=== PATIENT | male | born 1935 | race Caucasian/White ===

== ENCOUNTER → 2016-07-10 | Outpatient (CLI) | payer MEDICARE, BC ==
[~2016-07-10] MED LIST: ALEVE 220MG220 MG PO; ALEVE220 MG PO; ASPIRIN 81M81 MG/TA2 PO; ASPIRIN E.C. 8181 MG PO; ATORVASTATIN PO; AZULFIDINE500 MG/TAB PO; COLACE 100100 MG/CAP PO; CORDARONE200 MG/TAB PO; D-31000 IU PO; ELIQUIS 5MG PO; FAT ABSORB1 CAP PO; FIBER TABLETS625 MG PO; FLONASE NASAL S16 GM NS; HCTZ; HYOMAX-FT0.125 MG PO; IRON TABLETS325 MG PO; LEVOTHYROXINE0.1 MG PO; LIPITOR 10MG10 MG PO; LOMOTIL 0.025 M1 TAB PO; LOPRESSOR 550 MG/TAB PO; LOW DOSE ASPIRI81 MG PO; MAREPA1200 MG PO; MELATONIN3 M1 PO; MULTAQ400 MG PO; MULTI VITAMINS1 TAB PO; MULTIPLE VITAMI1 CAP PO; NEXIUM PO; PERCOCET 5/321 UDTAB PO; PHENERGAN W/CO120 M1 PO; POTASSIUM GLUC550 MG PO; PRIL40 PO; PRILOSEC 20MG20 MG PO; PROFERRIN ES12 MG PO; SINGULAIR; SINGULAIR 110 MG/TAB PO; SINGULAIR10 MG PO; TESSALON PERLE200 MG PO; TIROSINT100 MCG PO; TOPROL PO; TOPROL XL 50MG50 MG PO; VERAPAMIL; VITAMIN C500 MG PO; XARELTO20 MG PO; ZYLOPRIM 300MG300 MG PO; [UNRECOGNIZED DRUG - CODE] PO; [UNRECOGNIZED DRUG - OTHER] IH
== END ==
LOC: COL.PUL 11:36
DX: I48.0 Paroxysmal atrial fibrillation (principal); Z79.899 Other long term (current) drug therapy

== ENCOUNTER 2016-12-26 08:17 | Outpatient (CLI) | payer MEDICARE, BC ==
[~2016-12-26 08:17] MED LIST changes: -[UNRECOGNIZED DRUG - OTHER] IH
[2016-12-26 08:29] VITALS: BP 133/83; PULSE 62; TEMP 97
[2016-12-26] MEDS ORDERED: [UNRECOGNIZED DRUG - OTHER] IH (08:45)
[2016-12-26 10:01] VITALS: BP 131/66; PULSE 73; TEMP 97.2
== END 2016-12-26 19:29 | disposition home or self-care (01) ==
LOC: COL.CAR 08:17
DX: I48.0 Paroxysmal atrial fibrillation (principal); I10 Essential (primary) hypertension; E78.5 Hyperlipidemia, unspecified; K21.9 Gastro-esophageal reflux disease without esophagitis; G47.33 Obstructive sleep apnea (adult) (pediatric); E03.9 Hypothyroidism, unspecified; Z96.653 Presence of artificial knee joint, bilateral; Z90.79 Acquired absence of other genital organ(s); Z79.01 Long term (current) use of anticoagulants; Z85.46 Personal history of malignant neoplasm of prostate; Z87.891 Personal history of nicotine dependence; Z85.828 Personal history of other malignant neoplasm of skin
CPT/HCPCS: 27124; C1764

== ENCOUNTER 2017-05-10 13:18 | Day surgery (SDC) | payer MEDICARE, BC ==
[2017-05-10] VITALS (8 sets, daily range): BP systolic 110–146; BP diastolic 72–103; PULSE 61–101
[~2017-05-10] VITALS: Ht 175.3 cm; Wt 77.0 kg
[~2017-05-10 13:18] MED LIST changes: +[UNRECOGNIZED DRUG - OTHER] IH
[2017-05-10] MEDS ORDERED: SINEMET 25/101 UDTAB PO (14:54)
[2017-05-10 14:56] LABS: POTASSIUM 4.1 mmol/L (3.4-5.0)
[2017-05-10 15:00] LABS: INR 1.2 (0.8-3.0); PROTHROMBIN TIME 13.9 SECONDS (9.7-12.8)
[2017-05-10 15:31] LABS: THYROID STIMULATING HORMONE 0.358 uIU/mL (0.465-4.680)
[2017-05-10] MEDS ORDERED: PACERONE200 MG PO (16:20)
== END 2017-05-10 17:00 | disposition home or self-care (01) ==
LOC: COL.CAR 13:18
PROVIDERS: Internal Medicine Cardiovascular Disease
DX: I48.0 Paroxysmal atrial fibrillation (principal); Z79.01 Long term (current) use of anticoagulants
CPT/HCPCS: J2250; J3010; J7030

== ENCOUNTER 2017-05-22 13:03 | Day surgery (SDC) | payer MEDICARE, BC ==
[~2017-05-22] VITALS: Ht 175.4 cm; Wt 77.0 kg
[~2017-05-22 13:03] MED LIST changes: +PACERONE200 MG PO; +SINEMET 25/101 UDTAB PO
[2017-05-22 13:50] VITALS: BP 125/81; PULSE 96; TEMP 97.6
[2017-05-22 13:52] LABS: INR 1.3 (0.8-3.0); PROTHROMBIN TIME 15.1 SECONDS (9.7-12.8)
[2017-05-22 13:53] LABS: POTASSIUM 4.3 mmol/L (3.4-5.0)
[2017-05-22 14:14] VITALS: BP 126/84; PULSE 94
[2017-05-22 14:28] LABS: THYROID STIMULATING HORMONE 0.849 uIU/mL (0.465-4.680)
[2017-05-22 15:00] VITALS: BP 112/68; PULSE 61
[2017-05-22 15:15] VITALS: BP 121/62; PULSE 62
[2017-05-22 15:30] VITALS: BP 100/60; PULSE 67
[2017-05-22 16:00] VITALS: BP 110/60; PULSE 58
== END 2017-05-22 16:14 | disposition home or self-care (01) ==
LOC: COL.CAR 13:03
PROVIDERS: Internal Medicine Cardiovascular Disease
DX: I48.91 Unspecified atrial fibrillation (principal); Z79.899 Other long term (current) drug therapy
CPT/HCPCS: J0153; J2250; J3010

== ENCOUNTER 2017-08-09 07:12 | Day surgery (SDC) | payer MEDICARE, BC ==
[~2017-08-09] VITALS: Ht 175.3 cm; Wt 79.9 kg
[~2017-08-09 07:12] MED LIST changes: +SYNTHROID0.1 MG/TAB PO; -TIROSINT100 MCG PO
[2017-08-09] MEDS ORDERED: MELAT3MGTAB PO (07:49)
[2017-08-09 07:58] LABS: INR 1.3 (0.8-3.0); PROTHROMBIN TIME 15.5 SECONDS (9.7-12.8)
[2017-08-09 08:01] LABS: POTASSIUM 4.4 mmol/L (3.4-5.0)
[2017-08-09 08:08] VITALS: BP 111/66; PULSE 62; TEMP 97.4
[2017-08-09 08:34] LABS: THYROID STIMULATING HORMONE 0.932 uIU/mL (0.465-4.680)
[2017-08-09 08:51] VITALS: BP 117/71; PULSE 51; TEMP 98.1
[2017-08-09] MEDS ORDERED: CORDARONE200 MG/TAB PO (09:01)
== END 2017-08-09 10:36 | disposition home or self-care (01) ==
LOC: COL.CAR 07:12
PROVIDERS: Internal Medicine Cardiovascular Disease
DX: I48.0 Paroxysmal atrial fibrillation (principal); I48.91 Unspecified atrial fibrillation; I10 Essential (primary) hypertension; E78.5 Hyperlipidemia, unspecified; E03.9 Hypothyroidism, unspecified; G47.30 Sleep apnea, unspecified
CPT/HCPCS: J7030

== ENCOUNTER 2018-01-23 14:00 | Emergency (ER) | payer MEDICARE, BC ==
[~2018-01-23] VITALS: Ht 177.8 cm; Wt 77.3 kg
[~2018-01-23 14:00] MED LIST changes: +MELAT3MGTAB PO
[2018-01-23 14:12] VITALS: TEMP 98
[2018-01-23 15:41] LABS: BASO % 0.6 % (0.0-2.0); EOS # 0.1 (0.0-0.7); GRAN # 4.5 (1.4-6.5); GRAN % 71.3 % (42.2-75.2); HEMATOCRIT 31.7 % (42.0-52.0); HEMOGLOBIN 10.5 g/dl (13.5-18.0); LYMPH % 15.5 % (20.0-51.0); MEAN CELL VOLUME 98 fl (80.0-100.0); MEAN CORPUSCULAR HEMOGLOBIN 33 pg (27.0-31.0); MEAN CORPUSCULAR HGB CONC 33 g/dl (33.0-37.0); MEAN PLATELET VOLUME 9.6 fl (7.4-10.4); MONO # 0.7 (0.1-0.6); MONO % 11.3 % (1.7-9.3); PLATELET COUNT 216 K/mm3 (130-400); RED BLOOD COUNT 3.22 M/mm3 (4.20-5.60)
[2018-01-23 15:55] LABS: ALBUMIN 3.6 gm/dL (3.5-5.0); BILIRUBIN,TOTAL 0.4 mg/dL (0.0-1.0); CALCIUM 8.3 mg/dL (8.4-10.2); POTASSIUM 4.7 mmol/L (3.4-5.0); TOTAL PROTEIN 6.3 gm/dL (6.4-8.2)
[2018-01-23] MEDS ORDERED: LASIX 20MG TABL20 MG PO (16:37)
[2018-01-23] MEDS ORDERED: MITIGARE0.6 MG (16:37)
[2018-01-23] MEDS ORDERED: REQUIP 1MG T1 MG/TAB PO (16:37)
[2018-01-23 17:30] VITALS: BP 162/78; PULSE 62
== END 2018-01-23 17:35 | disposition home or self-care (01) ==
LOC: COL.ER 14:00
PROVIDERS: Emergency Medicine
DX: S20.212A Contusion of left front wall of thorax, initial encounter (principal); G20 Parkinson's disease; I48.91 Unspecified atrial fibrillation; E03.9 Hypothyroidism, unspecified; Z79.01 Long term (current) use of anticoagulants; W01.10XA Fall on same level from slipping, tripping and stumbling with subsequent striking against unspecified object, initial encounter; Y92.002 Bathroom of unspecified non-institutional (private) residence as the place of occurrence of the external cause
CPT/HCPCS: A9284; J1885; J7030; Q9967

== ENCOUNTER → 2018-06-20 | Outpatient (CLI) | payer MEDICARE, BC ==
[~2018-06-20] MED LIST changes: +LASIX 20MG TABL20 MG PO; +MITIGARE0.6 MG; +REQUIP 1MG T1 MG/TAB PO
== END ==
LOC: COL.LAB 14:15
DX: Z01.812 Encounter for preprocedural laboratory examination (principal); M17.12 Unilateral primary osteoarthritis, left knee

== ENCOUNTER 2018-07-25 22:47 | Inpatient (IN) | payer MEDICARE, BC ==
[~2018-07-25] VITALS: Wt 83.5 kg
[~2018-07-25 22:47] MED LIST changes: +FOLIC ACID 40400 MCG PO; +NORCO 325 MG-7.1 TAB PO; +PROCTOZONE-HC2.5% RC; +TOPROL XL 25MG25 MG PO; +TYLENOL 325MG325 MG PO; +ULTRAM 50MG TAB50 MG PO; +ZOFRAN 4MG T4 MG/TAB PO
[2018-07-25 23:16] LABS: BASO # 0.1 (0.0-0.2); EOS # 0.1 (0.0-0.7); EOS % 0.9 % (0-4.0); GRAN # 4.2 (1.4-6.5); GRAN % 71.3 % (42.2-75.2); LYMPH # 0.8 (1.2-3.4); LYMPH % 13.7 % (20.0-51.0); MEAN CELL VOLUME 99 fl (80.0-100.0); MEAN CORPUSCULAR HGB CONC 32 g/dl (33.0-37.0); MEAN PLATELET VOLUME 8.8 fl (7.4-10.4); MONO # 0.7 (0.1-0.6); MONO % 12.6 % (1.7-9.3); PLATELET COUNT 374 K/mm3 (130-400); RED BLOOD COUNT 2.91 M/mm3 (4.20-5.60); REDCELL DISTRIBUTION WIDTH-CV 16.9 % (11.5-14.5)
[2018-07-25 23:17] LABS: HEMATOCRIT 28.9 % (42.0-52.0); HEMOGLOBIN 9.2 g/dl (13.5-18.0); MEAN CORPUSCULAR HEMOGLOBIN 32 pg (27.0-31.0)
[2018-07-25 23:26] LABS: ALBUMIN 3.5 gm/dL (3.5-5.0); BILIRUBIN,TOTAL 0.7 mg/dL (0.0-1.0); CALCIUM 8.7 mg/dL (8.4-10.2); CREATININE, serum 0.96 mg/dL (0.66-1.25); POTASSIUM 4.5 mmol/L (3.4-5.0); TOTAL PROTEIN 6.5 gm/dL (6.4-8.2)
[2018-07-25 23:27] LABS: INR 1.7 (0.8-3.0); PROTHROMBIN TIME 19.3 SECONDS (9.7-12.8)
[2018-07-25 23:38] LABS: TROPONIN-I 0.031 ng/mL (0.000-0.035)
[2018-07-26] MEDS ORDERED: ZYLOPRIM 300MG300 MG PO (00:51)
[2018-07-26] MEDS ORDERED: ELIQUIS 5MG PO (00:52)
[2018-07-26] MEDS ORDERED: VITAMINC250CH PO (00:52)
[2018-07-26] MEDS ORDERED: CORDARONE200 MG/TAB PO (00:52)
[2018-07-26] MEDS ORDERED: PARCOPA 25/101 UDTAB PO (00:53)
[2018-07-26] MEDS ORDERED: COLACE 100100 MG/CAP PO (00:54)
[2018-07-26] MEDS ORDERED: FOLIC ACID 11 MG/TA1 PO (00:55)
[2018-07-26] MEDS ORDERED: LASIX 20MG TABL20 MG PO (00:56)
[2018-07-26] MEDS ORDERED: TIROSINT100 MC1 PO (00:57)
[2018-07-26] MEDS ORDERED: LIPITOR 10MG10 MG PO (00:58)
[2018-07-26] MEDS ORDERED: MULTI VITAMINS1 TAB PO (00:59)
[2018-07-26] MEDS ORDERED: LOPRESSOR 225 MG/TAB PO (00:59)
[2018-07-26] MEDS ORDERED: MELATONIN5 M1 PO (00:59)
[2018-07-26] MEDS ORDERED: PRIL40 PO (01:00)
[2018-07-26] MEDS ORDERED: REQUIP 1MG T1 MG/TAB PO (01:00)
[2018-07-26] MEDS ORDERED: AZULFIDINE500 MG/TAB PO (01:01)
[2018-07-26] MEDS ORDERED: NATURAL IRON65 MG PO (02:32)
[2018-07-26] MEDS ORDERED: NORCO 325 MG-7.1 TAB PO (02:39)
[2018-07-26] MEDS ORDERED: LOMOTIL 0.025 M1 TAB PO (02:40)
[2018-07-26] MEDS ORDERED: ULTRAM 50MG TAB50 MG PO (02:40)
--- NOTE | 2018-07-26 03:52 | NUR ---
I talked to pt to see if he wears a bipap or cpap at home since RESIDENT SERVICES SUPERVISOR put order in for one. Pt states no I have never worn one before and dont feel like i am having any difficulty breathing right now. Pt breath sounds clear throughout with sl diminished LLL. pt in no respiratory distress at this time. PT is on ra sats are 92%. RR 18 nonlabored.
[2018-07-26 03:56] LABS: BASO % 0.6 % (0.0-2.0); EOS % 0.6 % (0-4.0); GRAN # 4.6 (1.4-6.5); GRAN % 73.5 % (42.2-75.2); LYMPH # 0.8 (1.2-3.4); LYMPH % 13.1 % (20.0-51.0); MEAN CELL VOLUME 99 fl (80.0-100.0); MEAN CORPUSCULAR HGB CONC 32 g/dl (33.0-37.0); MEAN PLATELET VOLUME 8.7 fl (7.4-10.4); MONO # 0.7 (0.1-0.6); MONO % 11.7 % (1.7-9.3); PLATELET COUNT 364 K/mm3 (130-400); RED BLOOD COUNT 2.92 M/mm3 (4.20-5.60); REDCELL DISTRIBUTION WIDTH-CV 16.8 % (11.5-14.5)
[2018-07-26 03:59] LABS: HEMATOCRIT 28.9 % (42.0-52.0); HEMOGLOBIN 9.3 g/dl (13.5-18.0); MEAN CORPUSCULAR HEMOGLOBIN 32 pg (27.0-31.0)
[2018-07-26] MEDS ORDERED: TOPROL XL 25MG25 MG PO ×2 (03:59→04:04)
[2018-07-26 04:01] VITALS: BP 117/72; PULSE 104; TEMP 99.2
[2018-07-26 04:06] LABS: ALBUMIN 3.4 gm/dL (3.5-5.0); BILIRUBIN,TOTAL 0.7 mg/dL (0.0-1.0); CALCIUM 8.5 mg/dL (8.4-10.2); CREATININE, serum 0.86 mg/dL (0.66-1.25); TOTAL PROTEIN 6.4 gm/dL (6.4-8.2)
[2018-07-26 04:13] LABS: PRE ALBUMIN 12.2 mg/dL (17.6-36.0)
[2018-07-26 04:33] LABS: TROPONIN-I 0.037 ng/mL (0.000-0.035)
[2018-07-26 04:38] LABS: THYROID STIMULATING HORMONE 1.97 uIU/mL (0.465-4.680)
--- NOTE | 2018-07-26 05:43 | NUR ---
Patient arrived to floor from ED via bed at approximately 0330. Patient is alert and oriented, answers questions appropriately. Both eyes PERRLA, no bruises or visible contusions on head. Left leg in immobilizer brace, knee is dressed with ABD. Patient is voiding with urinal, urine is clear and yellow. Telemetry in place per order. Patient states that pain in left knee is approximately 2/10, declines pain medication at this time. Call light within reach.
[2018-07-26 06:39] LABS: PH 5 (5-8); SQUAMOUS EPITHELIAL None Seen /hpf; URINE APPEARANCE Clear; URINE BACTERIA None Seen /hpf; URINE BILIRUBIN Negative (NEGATIVE); URINE BLOOD Negative (NEGATIVE); URINE CALCIUM OXALATE CRYSTAL Present /hpf; URINE COLOR Amber; URINE GLUCOSE Negative (NEGATIVE); URINE KETONE Trace (NEGATIVE); URINE LEUKOCYTE ESTERASE Negative (NEGATIVE); URINE NITRATE Negative (NEGATIVE); URINE PROTEIN(semi-quant) Negative (NEGATIVE); URINE RBC 0-2 /hpf; URINE UROBILINOGEN Negative (NEGATIVE)
[2018-07-26 07:02] LABS: COLLECTION METHOD CLEAN CATCH
[2018-07-26 08:00] VITALS: BP 93/54; PULSE 103; TEMP 98.4
--- NOTE | 2018-07-26 08:00 | NUR ---
PATIENT IS RESTING IN BED WITH PRESENT AT THE BEDSIDE. PATIENT IS A&O. TACHYCARDIA AND LOW BLOOD PRESSURES NOTED, OTHERWISE VSS. TELE IN PLACE. UPPER LUNG LOBES CLEAR UPON AUSCULTATION. BASES DIMINISHED BILATERALLY. PATIENT STATES THAT HE DOES FEEL SHORT OF BREATH AT REST. POSITIVE PEDAL PULSES EQUAL BILATERALLY. 2+ PITTING EDEMA TO BLE NOTED. CAP REFILL <3 SECONDS. CMS INTACT. LEFT KNEE DRESSED WITH AN LOUISE WRAP & BRACE. LEFT KNEE DRESSING IS CD&I. LEFT AC TO INT WITH ECCHYMOSIS NOTED. CALL LIGHT WITHIN REACH. PATIENT IS NPO. PATIENT DENIES ANY NEEDS AT THIS TIME.
--- NOTE | 2018-07-26 08:30 | NUR ---
DR. VALENTE NOTIFIED OF CRITICAL TROPONIN RESULT OF 0.047.
--- NOTE | 2018-07-26 10:47 | NUR ---
Patient is being transferred to [facility]. No assessment completed.
--- NOTE | 2018-07-26 10:47 | NUR ---
ALL PATIENT'S MORNING MEDICATIONS HELD, EXCEPT AMIODARONE PER DR. SILVA'S ORDERS.
--- NOTE | 2018-07-26 11:20 | NUR ---
REPORT CALLED TO NICHOLAS GLORIA AT [facility].
--- NOTE | 2018-07-26 11:29 | NUR ---
FAMILY CAME OUT REQUESTING PAIN MEDICATION FOR PATIENT. PATIENT GIVEN 2 MG OF IV MORPHINE. WILL CONTINUE TO MONITOR.
--- NOTE | 2018-07-26 12:25 | NUR ---
EMS ARRIVED. PATIENT GIVEN PRN DOSE OF IV MORPHINE 4 MG PRIOR TO EMS TRANSPORT.
--- NOTE | 2018-07-26 12:30 | NUR ---
UPDATED REPORT CALLED TO NICHOLAS GLORIA AT [facility]. PATIENT GIVEN 4 MG OF MORPHINE IV PRIOR TO TRANSPORT. PATIENT TAKEN TO PRIVATE TRANSPORT VEHICLE VIA CART BY EMS. PATIENT TRANSFERRED.
--- NOTE | 2018-07-26 13:00 | NUR ---
PATIENT TAKEN TO PRIVATE TRANSPORT VEHICLE VIA CART BY EMS. PATIENT TRANSFERRED.
== END 2018-07-26 13:00 | disposition short-term general hospital (02) | DRG 919 ==
LOC: COL.ER 22:47 → JCC 07-26 02:55
PROVIDERS: Family Medicine; Nurse Practitioner Family; ADMIT Family Medicine
DX: T81.32XA Disruption of internal operation (surgical) wound, not elsewhere classified, initial encounter (principal); S06.5X0A Traumatic subdural hemorrhage without loss of consciousness, initial encounter; I50.33 Acute on chronic diastolic (congestive) heart failure; I21.A1 Myocardial infarction type 2; I48.92 Unspecified atrial flutter; I11.0 Hypertensive heart disease with heart failure; Z96.652 Presence of left artificial knee joint; E78.5 Hyperlipidemia, unspecified; I48.91 Unspecified atrial fibrillation; G20 Parkinson's disease; E03.9 Hypothyroidism, unspecified; I08.0 Rheumatic disorders of both mitral and aortic valves; W18.30XA Fall on same level, unspecified, initial encounter; Z79.01 Long term (current) use of anticoagulants; Z85.46 Personal history of malignant neoplasm of prostate; I27.20 Pulmonary hypertension, unspecified
CPT/HCPCS: 99223-AI; A9284; J0690; J1940; J2250; J2270; J2704; J2795; J3010; J3370; J7050; L1846

== ENCOUNTER → 2018-08-05 | Outpatient (CLI) | payer MEDICARE, BC ==
[~2018-08-05] MED LIST changes: +FOLIC ACID 11 MG/TA1 PO; +LOPRESSOR 225 MG/TAB PO; +MELATONIN5 M1 PO; +NATURAL IRON65 MG PO; +PARCOPA 25/101 UDTAB PO; +TIROSINT100 MC1 PO; +VITAMINC250CH PO
[2018-08-05 16:10] LABS: COLLECTION METHOD CLEAN CATCH
[2018-08-05 16:18] LABS: MUCOUS Present /lpf; PH 7 (5-8); SQUAMOUS EPITHELIAL None Seen /hpf; URINE APPEARANCE Clear; URINE BACTERIA None Seen /hpf; URINE BILIRUBIN Negative (NEGATIVE); URINE BLOOD Negative (NEGATIVE); URINE COLOR Yellow; URINE GLUCOSE Negative (NEGATIVE); URINE KETONE Negative (NEGATIVE); URINE LEUKOCYTE ESTERASE Negative (NEGATIVE); URINE NITRATE Negative (NEGATIVE); URINE PROTEIN(semi-quant) Negative (NEGATIVE); URINE RBC 0-2 /hpf; URINE UROBILINOGEN Negative (NEGATIVE); URINE WBC 0-2 /hpf
== END ==
LOC: ZCOL.LAB 16:04
PROVIDERS: Internal Medicine
DX: R30.9 Painful micturition, unspecified (principal)

== ENCOUNTER → 2018-08-15 | Outpatient (CLI) | payer MEDICARE, BC | LOC: ZCOL.LAB 12:03 | DX: K52.9 Noninfective gastroenteritis and colitis, unspecified (principal) ==

== ENCOUNTER → 2018-09-27 | Outpatient (CLI) | payer MEDICARE, BC ==
[2018-09-27 10:19] LABS: BASO % 0.9 % (0.0-2.0); EOS # 0.1 (0.0-0.7); EOS % 2.2 % (0-4.0); GRAN # 3.2 (1.4-6.5); GRAN % 69.5 % (42.2-75.2); HEMOGLOBIN 10.5 g/dl (13.5-18.0); LYMPH # 0.8 (1.2-3.4); LYMPH % 17.4 % (20.0-51.0); MEAN CELL VOLUME 90 fl (80.0-100.0); MEAN CORPUSCULAR HEMOGLOBIN 29 pg (27.0-31.0); MEAN CORPUSCULAR HGB CONC 32 g/dl (33.0-37.0); MEAN PLATELET VOLUME 9.7 fl (7.4-10.4); MONO # 0.4 (0.1-0.6); MONO % 9.6 % (1.7-9.3); PLATELET COUNT 210 K/mm3 (130-400); RED BLOOD COUNT 3.62 M/mm3 (4.20-5.60); REDCELL DISTRIBUTION WIDTH-CV 16.4 % (11.5-14.5)
[2018-09-27 10:24] LABS: HEMATOCRIT 32.7 % (42.0-52.0)
[2018-09-27 10:35] LABS: ALANINE AMINOTRANSFERASE < 6 U/L (21-72); ALBUMIN 3.9 gm/dL (3.5-5.0); ALKALINE PHOSPHATASE 86 U/L (50-136); ANION GAP 11 mmol/L (7-16); AST,SGOT 27 U/L (15-37); BILIRUBIN,TOTAL 0.4 mg/dL (0.0-1.0); BLOOD UREA NITROGEN 15 mg/dL (9-20); C-REACTIVE PROTEIN 3.6 mg/dL (0.0-0.9); CALCIUM 9.6 mg/dL (8.4-10.2); CARBON DIOXIDE 27 mmol/L (22-30); CHLORIDE 99 mmol/L (98-107); CREATININE, serum 0.91 (0.66-1.25); GLUCOSE 93 mg/dL (74-106); POTASSIUM 4.2 mmol/L (3.4-5.0); SODIUM 137 mmol/L (137-145); TOTAL PROTEIN 6.8 gm/dL (6.4-8.2)
[2018-09-27 10:39] LABS: ERYTHROCYTE SEDIMENTATION RATE 34 mm/hr (0-30)
== END ==
LOC: ZCOL.LAB 09:41
PROVIDERS: Internal Medicine
DX: E87.1 Hypo-osmolality and hyponatremia (principal); D72.829 Elevated white blood cell count, unspecified

== ENCOUNTER 2019-02-03 07:03 | Day surgery (SDC) | payer MEDICARE, BC ==
[2019-02-03] VITALS (13 sets, daily range): BP systolic 94–152; BP diastolic 64–88; PULSE 58–91; TEMP 97.2–98.4
[~2019-02-03] VITALS: Ht 175.3 cm; Wt 75.1 kg
[~2019-02-03 07:03] MED LIST changes: -VITAMINC250CH PO; +VITAMINC500CH PO
[2019-02-03 07:54] LABS: INR 1.2 (0.8-3.0); PROTHROMBIN TIME 13.8 SECONDS (9.7-12.8)
[2019-02-03 07:58] LABS: CALCIUM 8.8 mg/dL (8.4-10.2); CREATININE, serum 0.86 (0.66-1.25)
[2019-02-03 08:04] LABS: HEMOGLOBIN 11.5 g/dl (13.5-18.0); MEAN CELL VOLUME 94 fl (80.0-100.0); MEAN CORPUSCULAR HEMOGLOBIN 32 pg (27.0-31.0); MEAN CORPUSCULAR HGB CONC 34 g/dl (33.0-37.0); MEAN PLATELET VOLUME 9.7 fl (7.4-10.4); PLATELET COUNT 205 K/mm3 (130-400); RED BLOOD COUNT 3.64 M/mm3 (4.20-5.60)
[2019-02-03 08:05] LABS: HEMATOCRIT 34.2 % (42.0-52.0)
[2019-02-03] MEDS ORDERED: IMODIUM 2MG CAPS2 MG PO (08:30)
[2019-02-03] MEDS ORDERED: SYNTHROID0.1 MG/TAB PO (08:31)
[2019-02-03] MEDS ORDERED: DOXYCYCLINE HY100 MG PO (08:33)
[2019-02-03] MEDS ORDERED: TOFRANIL 25MG T25 MG PO (08:35)
[2019-02-03] MEDS ORDERED: ALMACONE 360 M360 ML PO (08:37)
--- NOTE | 2019-02-03 09:18 | NUR ---
Pt to procedure,report to NICHOLAS Lobo
--- NOTE | 2019-02-03 09:29 | NUR ---
SEE MERGE REPORT FOR MEDICATION ADMINISTRATION TIMES WELL INTRA/POST SEDATION ASSESSMENTS.
--- NOTE | 2019-02-03 10:49 | NUR ---
Report received from Vielka Lobo.Will await pt's arrival from cardiac catheterization technician.
--- NOTE | 2019-02-03 11:04 | NUR ---
Pt transfered to room 14 with telemetry on. Pt to recover in outpatient bed until a room is available on medical. Bedside report to Haley PETERSON.
--- NOTE | 2019-02-03 13:14 | NUR ---
Pt requested clarification on the increase of Amiodarone.This nurse clarified with Dr Melyssa Fabian's nurse.Per pt , she would prefer he took 200 BID>per pt he took it BID previously.This nurse reported to Dr Ragsdale and Caren.Per Dr Ragsdale,Order can be changed.
--- NOTE | 2019-02-03 14:40 | NUR ---
report called to Hamida,Nurse on medical.
--- NOTE | 2019-02-03 14:56 | NUR ---
Pt to room 309,Report to Vielka Mei.Call light within reach.
--- NOTE | 2019-02-03 14:57 | NUR ---
PT ADMITTED TO FLOOR AT THIS TIME.
--- NOTE | 2019-02-03 16:20 | NUR ---
PT HAD C/O PAIN TO SHOULDER, PROVIDED ULTRAM AND ICE TO SITE. THIS NURSE ANSWERED QUESTIONS ABOUT DOSE CHANGE OF AMNIO AND RECIEVED FIRST DOSE AT THIS TIME. NO OTHER ISSUES OR CONCERNS VOICED.
--- NOTE | 2019-02-03 19:45 | NUR ---
Report received from NICHOLAS Mei
--- NOTE | 2019-02-03 22:52 | NUR ---
Resting in bed. Assessment complete. Lungs clear. Heart sounds normal. Bowels active x4. Pulses strong throughout. Bilateral lower leg edema +1. INT left forearm without complications. Pacemaker and loop recorder site without complications. Reports 5/10 pain. Provided with PRN tramadol. Denies other needs at this time. Call light in reach.
[2019-02-04 00:23] VITALS: BP 144/75; PULSE 66; TEMP 97.4
--- NOTE | 2019-02-04 00:34 | NUR ---
Resting in bed. Pacer site and loop recorder site free of complications.
[2019-02-04 04:20] VITALS: BP 157/66; PULSE 68; TEMP 97.5
--- NOTE | 2019-02-04 05:53 | NUR ---
Patient required PRN ultram throughout night for pain. Loop recorder site and pacemaker site remain free of complications. Denies needs this AM. Call light in reach.
[2019-02-04 07:18] VITALS: BP 109/67; PULSE 57; TEMP 97.7
--- NOTE | 2019-02-04 07:34 | NUR ---
Report given to NICHOLAS Saldana
--- NOTE | 2019-02-04 08:44 | NUR ---
Pt assessment complete. Pt is sitting in bed eating breakfast, he is A/O x3. His breathing is even and unlabored on RA. Pt denies SOB. Pain to L chest site, /, PRN pain medication administered. Both sites to chest CDI. No hematoma present to pacer site. LUE in sling. Pt denies SOB. NO N/V. Denies further needs, call light within reach. Will continue to monitor.
--- NOTE | 2019-02-04 08:58 | NUR ---
Initial visit; Patient thanked Exerciser for looking in on him and letting him know that spiritual care is available. Exerciser offered God's blessings to patient.
[2019-02-04 12:00] VITALS: BP 130/59; PULSE 77; TEMP 98.1
--- NOTE | 2019-02-04 12:43 | NUR ---
RAMY met with the patient and patient's , Carol, to discuss discharge plan. The patient lives in [place] with his . He reports needing occasional assistance with bathing and has a cane, walking stick, and walker. He states his helps him with bathing. The patient's PCP is Dr. Sathish Bean and he receives his medications at [facility]. He reports no difficulties obtaining his meds. The patient does not have a DPOA-HC in EMR. He states that he does have one completed though and that his PCP's office should have a copy. He states his is his DPOA-HC. SW attempted to contact his PCP's office to request a copy. SW left a voicemail. The patient plans to return home with his upon discharge. No additional needs at this time.
[2019-02-04] MEDS ORDERED: CEPHALEXIN500 M1 PO (14:17)
[2019-02-04] MEDS ORDERED: CORDARONE200 MG/TAB PO (14:18)
--- NOTE | 2019-02-04 15:14 | NUR ---
Discharge instructions and paperwork reviewed with patient. All questions answered at this time. IV to LFA dc'd, catheter tip intact. Pt wheeled out at this time.
--- NOTE | 2019-02-04 16:18 | NUR ---
SW received the patient's Living Will and DPOA-HC, via fax, from the patient's PCP office. SW placed them in the patient's chart. The patient's DPOA-HC is his and the alternates are his children, Anthony Tucker and Ban Patino.
== END 2019-02-04 15:15 | disposition home or self-care (01) ==
LOC: COL.CAR 07:03 → MEDICAL 15:15 → COL.CAR 02-04 15:15
PROVIDERS: Internal Medicine Cardiovascular Disease
DX: I49.5 Sick sinus syndrome (principal); I10 Essential (primary) hypertension; E78.5 Hyperlipidemia, unspecified; I48.91 Unspecified atrial fibrillation; G20 Parkinson's disease; E03.9 Hypothyroidism, unspecified; N40.0 Benign prostatic hyperplasia without lower urinary tract symptoms; G47.33 Obstructive sleep apnea (adult) (pediatric); I11.0 Hypertensive heart disease with heart failure; I50.9 Heart failure, unspecified
CPT/HCPCS: OP; C1785; C1894; C1898; J0690; J2250; J3010; J7030; Q9967

== ENCOUNTER 2019-07-10 07:17 | Inpatient (IN) | payer MEDICARE, BC ==
[~2019-07-10] VITALS: Ht 175.3 cm; Wt 74.0 kg
[2019-07-10] VITALS (12 sets, daily range): BP systolic 97–135; BP diastolic 54–117; PULSE 66–91; TEMP 97.4–98.6
[~2019-07-10 07:17] MED LIST changes: +ALMACONE 360 M360 ML PO; +CEPHALEXIN500 M1 PO; +DOXYCYCLINE HY100 MG PO; +IMODIUM 2MG CAPS2 MG PO; +TOFRANIL 25MG T25 MG PO
[2019-07-10 08:26] LABS: HEMOGLOBIN 11.5 g/dl (13.5-18.0); MEAN CELL VOLUME 94 fl (80.0-100.0); MEAN CORPUSCULAR HEMOGLOBIN 31 pg (27.0-31.0); MEAN CORPUSCULAR HGB CONC 33 g/dl (33.0-37.0); MEAN PLATELET VOLUME 9.9 fl (7.4-10.4); PLATELET COUNT 232 K/mm3 (130-400); RED BLOOD COUNT 3.75 M/mm3 (4.20-5.60); REDCELL DISTRIBUTION WIDTH-CV 18.6 % (11.5-14.5)
[2019-07-10 08:28] LABS: INR 2.3 (0.8-3.0); PROTHROMBIN TIME 27.5 SECONDS (9.7-12.8)
[2019-07-10 08:32] LABS: HEMATOCRIT 35.4 % (42.0-52.0)
[2019-07-10 08:34] LABS: CALCIUM 8.8 mg/dL (8.4-10.2); CREATININE, serum 0.86 (0.66-1.25); MAGNESIUM 1.9 mg/dL (1.6-2.3); POTASSIUM 4.3 mmol/L (3.4-5.0)
[2019-07-10 08:45] LABS: PARTIAL THROMBOPLASTIN TIME 33.4 SECONDS (26.0-37.0)
[2019-07-10 09:04] LABS: THYROID STIMULATING HORMONE 2.09 uIU/mL (0.465-4.680)
--- NOTE | 2019-07-10 12:13 | NUR ---
Pt to room 314,report to Aracely.
--- NOTE | 2019-07-10 19:05 | NUR ---
Seen patient awake seating in the recliner. With O2 at 1.5lpm via NC. With INT of left AC. Patient is alert and oriented. Edema noted mostly on bilateral lower extremity. Patient denies any pain. Call light within reach.
[2019-07-11 00:25] VITALS: BP 102/73; PULSE 74; TEMP 98.2
[2019-07-11 04:20] VITALS: BP 96/59; PULSE 82; TEMP 97.8
--- NOTE | 2019-07-11 06:37 | NUR ---
Patient denies any pain all shift. He was able to urinate in his urinal. Maintained on O2 at 1.5LPM via NC. Will endorse to day shift nurse.
[2019-07-11 07:39] LABS: BASO % 0.5 % (0.0-2.0); EOS # 0.1 (0.0-0.7); EOS % 1.9 % (0-4.0); GRAN # 4.8 (1.4-6.5); GRAN % 75.7 % (42.2-75.2); HEMOGLOBIN 11.3 g/dl (13.5-18.0); LYMPH # 0.7 (1.2-3.4); LYMPH % 11.5 % (20.0-51.0); MEAN CELL VOLUME 95 fl (80.0-100.0); MEAN CORPUSCULAR HEMOGLOBIN 31 pg (27.0-31.0); MEAN CORPUSCULAR HGB CONC 33 g/dl (33.0-37.0); MEAN PLATELET VOLUME 10.1 fl (7.4-10.4); MONO # 0.6 (0.1-0.6); MONO % 9.9 % (1.7-9.3); PLATELET COUNT 201 K/mm3 (130-400); RED BLOOD COUNT 3.65 M/mm3 (4.20-5.60); REDCELL DISTRIBUTION WIDTH-CV 18.5 % (11.5-14.5)
[2019-07-11 07:56] LABS: CALCIUM 8.5 mg/dL (8.4-10.2); CREATININE, serum 0.75 (0.66-1.25); HEMATOCRIT 34.5 % (42.0-52.0); MAGNESIUM 1.9 mg/dL (1.6-2.3); POTASSIUM 3.6 mmol/L (3.4-5.0)
[2019-07-11 08:43] VITALS: BP 102/77; PULSE 78; TEMP 97.4
--- NOTE | 2019-07-11 10:46 | NUR ---
Visited the patient and provided spiritual care.
[2019-07-11 12:03] VITALS: BP 97/57; PULSE 74; TEMP 97.8
[2019-07-11 16:51] VITALS: BP 124/64; PULSE 76; TEMP 98.1
--- NOTE | 2019-07-11 19:30 | NUR ---
Received report from day shift nurse. Patient is awake, sitting on bed. With INT on right lower forearm. Patient denies any pain or difficulty of breathing. Call light within reach. Will continue to monitor.
[2019-07-11 21:31] VITALS: BP 111/81; PULSE 70; TEMP 97.4
[2019-07-12 02:03] VITALS: BP 102/59; PULSE 56; TEMP 97.5
--- NOTE | 2019-07-12 06:15 | NUR ---
Patient had an uneventful night. He was up most of the time going to the bathroom. He was able to had a bowel movement twice. Denies any pain or difficulty of breathing. Will endorse to day shift nurse.
[2019-07-12 07:20] VITALS: BP 109/56; PULSE 82; TEMP 97.3
[2019-07-12 08:56] LABS: BASO % 0.4 % (0.0-2.0); EOS # 0.2 (0.0-0.7); EOS % 2.7 % (0-4.0); GRAN # 5.4 (1.4-6.5); GRAN % 77.5 % (42.2-75.2); LYMPH # 0.7 (1.2-3.4); LYMPH % 10.5 % (20.0-51.0); MEAN CELL VOLUME 93 fl (80.0-100.0); MEAN CORPUSCULAR HEMOGLOBIN 31 pg (27.0-31.0); MEAN CORPUSCULAR HGB CONC 33 g/dl (33.0-37.0); MEAN PLATELET VOLUME 9.8 fl (7.4-10.4); MONO # 0.6 (0.1-0.6); MONO % 8.5 % (1.7-9.3); PLATELET COUNT 249 K/mm3 (130-400); RED BLOOD COUNT 4.18 M/mm3 (4.20-5.60); REDCELL DISTRIBUTION WIDTH-CV 18.4 % (11.5-14.5)
[2019-07-12 09:05] LABS: CALCIUM 8.6 mg/dL (8.4-10.2); CREATININE, serum 0.78 (0.66-1.25); POTASSIUM 3.2 mmol/L (3.4-5.0)
[2019-07-12 12:31] VITALS: BP 101/54; PULSE 54; TEMP 97.8
--- NOTE | 2019-07-12 15:28 | NUR ---
Plan: To return home with Carol [phone] at [facility] assisted. Assess; Patient reoprts that he resides at [facility] with his and that she will provide transportation home. Patient reports that his dpoa is his . Patient reports that he uses a walker for mobility and has a pacemaker, heart monitor, and uses a pulse ox. Patient shares that his PCP is Dr. Bean with no [facility]. Patient indicated that he uses [facility] from medications without difficulty. Patient also indicated that Dr. Ragsdale is also a consulting PA. Patient would like DTR listed Ban Patino foor EMR. Action:Educated patient on resources locally. No additional concerns. Nothing Follows.
[2019-07-12 16:17] VITALS: BP 101/59; PULSE 86; TEMP 98
--- NOTE | 2019-07-12 20:45 | NUR ---
Shift assessment complete. Pt resting in bed, awake, a&o, cooperative c cares. Pt denies increased SOB, pain or any other c/o at this time. INT patent. Tele in place. O2 per NC. Pt denies further needs. Call light in reach, bed alarm on. Will continue to monitor.
[2019-07-12 21:03] VITALS: BP 131/69; PULSE 83; TEMP 97.2
[2019-07-13 01:21] VITALS: BP 110/65; PULSE 58; TEMP 96.7
[2019-07-13 04:15] VITALS: BP 111/78; PULSE 85; TEMP 97.9
[2019-07-13 06:35] LABS: CALCIUM 8.6 mg/dL (8.4-10.2); CREATININE, serum 0.99 (0.66-1.25); MAGNESIUM 1.6 mg/dL (1.6-2.3); POTASSIUM 4.2 mmol/L (3.4-5.0)
[2019-07-13 07:32] VITALS: BP 102/87; PULSE 44; TEMP 97.2
[2019-07-13] MEDS ORDERED: ENTRESTO 24 MG1 EACH PO (09:55)
--- NOTE | 2019-07-13 09:55 | NUR ---
Patient resting in bed, at the bedside. A&Ox4, denies pain and discomfort. IV CDI. VSS, BP hypotensive and HR bradycardic, doctor Molly aware. No further needs expressed from patient. Call light within reach
[2019-07-13] MEDS ORDERED: ALDACTONE 25MG25 M1 PO (09:56)
[2019-07-13] MEDS ORDERED: LASIX 40MG TABL40 MG PO (10:06)
--- NOTE | 2019-07-13 10:48 | NUR ---
RAMY staffed with PT, Samson, on their recommendations. PT is recommending home health. RAMY then met with the patient's to review discharge plan and to discuss PT's recommendations. The patient was in the restroom. The patient's reports that they plan on returning back to their independent living apartment at [facility]. She states that they would be interested in home health. RAMY provided the patient's with Medicare.Cuídate's list of home health agencies that serve [place]. The patient's chose [facility]. RAMY attempted to contact Keyshawn at [facility]. RAMY left a voicemail and faxed over the referral. The patient is to discharge today, 07/13. RAMY presented and explained the IM form to the patient's . The patient's verbalized understanding, signed, and she was provided a copy. RAMY awaiting approval from [facility].
--- NOTE | 2019-07-13 11:27 | NUR ---
Keyshawn, at [facility], reports that they are able to accept the patient for services. SW to inform the patient and his . The patient is to discharge back home with his today, 07/13, with home health services for PT/OT/mcfp from [facility]. No additional needs at this time.
[2019-07-13 12:03] VITALS: BP 95/54; PULSE 76; TEMP 97.5
--- NOTE | 2019-07-13 17:16 | NUR ---
Patient discharged home with at 1430. Assisted to private vehicle with staff. Personal belongings sent with patient.
== END 2019-07-13 14:30 | disposition home health service (06) | DRG 291 ==
LOC: COL.CAR 07:17 → MEDICAL 12:14 → COL.CAR 12:15 → MEDICAL 12:16
PROVIDERS: Hospitalist; Internal Medicine Cardiovascular Disease; Nurse Practitioner Family; ADMIT Internal Medicine
PROC: 5A2204Z Restoration of Cardiac Rhythm, Single (ICD-10-PCS; principal; 2019-07-10)
DX: I11.0 Hypertensive heart disease with heart failure (principal); J96.01 Acute respiratory failure with hypoxia; I48.19 Other persistent atrial fibrillation; I50.23 Acute on chronic systolic (congestive) heart failure; I08.3 Combined rheumatic disorders of mitral, aortic and tricuspid valves; I27.20 Pulmonary hypertension, unspecified; E78.5 Hyperlipidemia, unspecified; G20 Parkinson's disease; E03.9 Hypothyroidism, unspecified; Z96.659 Presence of unspecified artificial knee joint; G47.33 Obstructive sleep apnea (adult) (pediatric); E87.6 Hypokalemia; N40.0 Benign prostatic hyperplasia without lower urinary tract symptoms; E87.70 Fluid overload, unspecified; I25.5 Ischemic cardiomyopathy; Z79.01 Long term (current) use of anticoagulants; Z85.828 Personal history of other malignant neoplasm of skin; Z87.891 Personal history of nicotine dependence; Z95.0 Presence of cardiac pacemaker; Z88.5 Allergy status to narcotic agent
CPT/HCPCS: 99222-AI; 99231-AI; 99232-AI; 99239; J1940; J2704

== ENCOUNTER 2019-07-17 14:18 | Emergency (ER) | payer MEDICARE, BC ==
[~2019-07-17] VITALS: Ht 175.3 cm; Wt 70.3 kg
[~2019-07-17 14:18] MED LIST changes: +ALDACTONE 25MG25 M1 PO; +ENTRESTO 24 MG1 EACH PO; +LASIX 40MG TABL40 MG PO
[2019-07-17 14:36] VITALS: TEMP 97.4
[2019-07-17 15:18] LABS: BASO % 0.5 % (0.0-2.0); EOS # 0.1 (0.0-0.7); GRAN # 4.2 (1.4-6.5); GRAN % 71.7 % (42.2-75.2); HEMOGLOBIN 12.1 g/dl (13.5-18.0); LYMPH % 17.2 % (20.0-51.0); MEAN CELL VOLUME 94 fl (80.0-100.0); MEAN CORPUSCULAR HEMOGLOBIN 31 pg (27.0-31.0); MEAN CORPUSCULAR HGB CONC 33 g/dl (33.0-37.0); MEAN PLATELET VOLUME 10.1 fl (7.4-10.4); MONO # 0.5 (0.1-0.6); MONO % 9.3 % (1.7-9.3); PLATELET COUNT 245 K/mm3 (130-400); RED BLOOD COUNT 3.93 M/mm3 (4.20-5.60); REDCELL DISTRIBUTION WIDTH-CV 17.9 % (11.5-14.5)
[2019-07-17 15:33] LABS: INR 1.6 (0.8-3.0); PROTHROMBIN TIME 18.8 SECONDS (9.7-12.8)
[2019-07-17 15:35] LABS: ALBUMIN 3.7 gm/dL (3.5-5.0); BILIRUBIN,TOTAL 0.5 mg/dL (0.0-1.0); CALCIUM 8.9 mg/dL (8.4-10.2); CREATININE, serum 1.05 (0.66-1.25); POTASSIUM 4.3 mmol/L (3.4-5.0); TOTAL PROTEIN 6.5 gm/dL (6.4-8.2)
[2019-07-17 15:47] LABS: TROPONIN-I 0.032 ng/mL (0.000-0.035)
[2019-07-17 17:35] VITALS: BP 92/66; PULSE 75
== END 2019-07-17 17:40 | disposition home or self-care (01) ==
LOC: COL.ER 14:18
PROVIDERS: Emergency Medicine
DX: I95.9 Hypotension, unspecified (principal); I48.91 Unspecified atrial fibrillation; G20 Parkinson's disease; E87.6 Hypokalemia; E78.5 Hyperlipidemia, unspecified; I10 Essential (primary) hypertension; I11.0 Hypertensive heart disease with heart failure; I50.9 Heart failure, unspecified; Z79.01 Long term (current) use of anticoagulants
CPT/HCPCS: J7040

== ENCOUNTER 2019-07-27 14:01 | Inpatient (IN) | payer MEDICARE, BC ==
[~2019-07-27] VITALS: Ht 175.3 cm; Wt 71.4 kg
[2019-07-27 14:31] LABS: BASO # 0.1 (0.0-0.2); EOS # 0.1 (0.0-0.7); GRAN # 4.4 (1.4-6.5); GRAN % 70.5 % (42.2-75.2); HEMATOCRIT 38.1 % (42.0-52.0); HEMOGLOBIN 12.3 g/dl (13.5-18.0); LYMPH # 0.9 (1.2-3.4); LYMPH % 15.1 % (20.0-51.0); MEAN CELL VOLUME 94 fl (80.0-100.0); MEAN CORPUSCULAR HEMOGLOBIN 30 pg (27.0-31.0); MEAN CORPUSCULAR HGB CONC 32 g/dl (33.0-37.0); MEAN PLATELET VOLUME 10.3 fl (7.4-10.4); MONO # 0.7 (0.1-0.6); MONO % 11.9 % (1.7-9.3); PLATELET COUNT 251 K/mm3 (130-400); RED BLOOD COUNT 4.06 M/mm3 (4.20-5.60); REDCELL DISTRIBUTION WIDTH-CV 18.9 % (11.5-14.5)
[2019-07-27 14:36] LABS: INR 1.7 (0.8-3.0); PROTHROMBIN TIME 19.7 SECONDS (9.7-12.8)
[2019-07-27 14:38] LABS: PARTIAL THROMBOPLASTIN TIME 37.8 SECONDS (26.0-37.0)
[2019-07-27 14:45] LABS: ALBUMIN 4.2 gm/dL (3.5-5.0); BILIRUBIN,TOTAL 0.6 mg/dL (0.0-1.0); CALCIUM 9.2 mg/dL (8.4-10.2); CREATININE, serum 1.45 (0.66-1.25); POTASSIUM 4.7 mmol/L (3.4-5.0); TOTAL PROTEIN 7.3 gm/dL (6.4-8.2)
[2019-07-27 14:58] LABS: TROPONIN-I 0.047 ng/mL (0.000-0.035)
[2019-07-27 15:57] LABS: ARTERIAL BLD GAS O2 SATURATION 98.5 % (92-100); ARTERIAL BLD GAS TCO2 CT 23.6; ARTERIAL BLOOD GAS BASE EXCESS -0.1 (-2-2); ARTERIAL BLOOD GAS HCO3 22.6 meq/L (22-26); ARTERIAL BLOOD GAS PCO2 30.8 mmHg (35-45); ARTERIAL BLOOD GAS pH 7.48 (7.35-7.45)
[2019-07-27 15:58] LABS: ARTERIAL BLOOD GAS PO2 123.5 mmHg (80-100)
[2019-07-27 17:08] VITALS: BP 97/79; PULSE 80; TEMP 97.9
[2019-07-27] MEDS ORDERED: SYMMETREL100 MG PO (18:09)
[2019-07-27] MEDS ORDERED: SINEMET 25/101 UDTAB PO (18:09)
[2019-07-27] MEDS ORDERED: COZAAR 50MG50 MG/TAB PO (18:10)
[2019-07-27] MEDS ORDERED: DOXYCYCLINE 10100 MG PO (18:10)
[2019-07-27] MEDS ORDERED: REQUIP2 MG PO (18:12)
[2019-07-27] MEDS ORDERED: PACERONE400 MG PO (18:27)
[2019-07-27 19:36] VITALS: BP 85/61; PULSE 74; TEMP 98.2
--- NOTE | 2019-07-27 20:00 | NUR ---
Received report from NICHOLAS Mei. Assessment complete. Alert and oriented. Denies any pain or discomfort. Tele monitor in place, leads checked. meds administered. INT to RFA intact, flushed, dressing CDI. Urinal at bedside, walker at bedside. Pt aware to call staff for help. Fall precautions in place. Call light within reach.
--- NOTE | 2019-07-27 22:34 | NUR ---
PATIENT UNABLE TO TOLERATE AT HOME. PATIENT DECLINES THIS INTERVENTION.
[2019-07-28] VITALS (7 sets, daily range): BP systolic 92–104; BP diastolic 57–75; PULSE 76–86; TEMP 97–97.9
--- NOTE | 2019-07-28 06:42 | NUR ---
No complaints made during this shift. Meds administered. Needs met. Call light within reach. Report given to NICHOLAS Raygoza.
[2019-07-28 06:52] LABS: BASO # 0.1 (0.0-0.2); EOS # 0.1 (0.0-0.7); EOS % 1.3 % (0-4.0); GRAN # 3.5 (1.4-6.5); GRAN % 67.3 % (42.2-75.2); HEMOGLOBIN 11.8 g/dl (13.5-18.0); LYMPH % 19.4 % (20.0-51.0); MEAN CELL VOLUME 93 fl (80.0-100.0); MEAN CORPUSCULAR HEMOGLOBIN 30 pg (27.0-31.0); MEAN CORPUSCULAR HGB CONC 33 g/dl (33.0-37.0); MEAN PLATELET VOLUME 10.4 fl (7.4-10.4); MONO # 0.6 (0.1-0.6); MONO % 10.6 % (1.7-9.3); PLATELET COUNT 247 K/mm3 (130-400); RED BLOOD COUNT 3.88 M/mm3 (4.20-5.60); REDCELL DISTRIBUTION WIDTH-CV 18.6 % (11.5-14.5)
[2019-07-28 07:08] LABS: ALBUMIN 3.9 gm/dL (3.5-5.0); BILIRUBIN,TOTAL 0.7 mg/dL (0.0-1.0); CALCIUM 9.1 mg/dL (8.4-10.2); CREATININE, serum 1.44 (0.66-1.25); MAGNESIUM 2.1 mg/dL (1.6-2.3); POTASSIUM 3.9 mmol/L (3.4-5.0); TOTAL PROTEIN 6.8 gm/dL (6.4-8.2)
[2019-07-28 07:17] LABS: TROPONIN-I 0.054 ng/mL (0.000-0.035)
--- NOTE | 2019-07-28 10:12 | NUR ---
Patient is awake and alert sitting up in bed with head elevated. Denies having any pain at this time, states "I'm feeling pretty good." Is noted to have tremors in his hands and did have to assist with morning medications at breakfast. Call light and personal items are within reach.
--- NOTE | 2019-07-28 12:17 | NUR ---
Initial visit; Patient thanked Research Quality Assurance Analyst for looking in on him and wishing him well. Patient states he does not participate in any sikh but appreciates Research Quality Assurance Analyst's work.
--- NOTE | 2019-07-28 14:29 | NUR ---
Senior Process Engineer met with patient and patient's , Carol (ph#[phone]) to discuss discharge planning and complete readmission interview. Patient was admitted from 07/10/19-07/13/19 and discharged home with home health services. Patient lives at [facility] and has services provided by [facility]. Patient has medications delivered by [facility] and has his set them up for him. Patient has a walker, cane, and walking stick. Patient has Advance Directives completed. Patient expressed interest in skilled stay at [facility]. SW contacted Iris at [facility] and faxed referral. SW to continue to follow.
--- NOTE | 2019-07-28 14:44 | NUR ---
Met with pt, , and daughter in room. Pt enjoys being at home with , watching sports--especially enjoyed the Super Bowl. His activities are more limited but he is really pretty independent per with bathing, dressing, eating, with only standby type assistance and help moving shower chair, etc. Anthony likes his current living situation and would like to mainatain that. He is willing to stay at [facility] for a rehab program if that will help him recover. and daughter agree with this plan and are supportive.
--- NOTE | 2019-07-28 19:57 | NUR ---
Initial shift assessment done- denies pain- denies SOB, understands NPO after MN for CV- consent is already signed. Did eat 1/3 of his supper- watching TV- no requests at this time
[2019-07-29] VITALS (11 sets, daily range): BP systolic 92–155; BP diastolic 38–122; PULSE 67–82; TEMP 97.5–98.3
--- NOTE | 2019-07-29 03:00 | NUR ---
Has had numerous attempts to urinate in the urinal-- Up to bathroom now sitting on the toilet-- did have a very wet pull up brief a few hours ago- Back to bed, did bladder scan and had 168cc in bladder. Informed pt that bladder is not full so go ahead and get some sleep.
--- NOTE | 2019-07-29 03:31 | NUR ---
Up to side of bed- trying to urinate- had a wet pull- up brief - changed at this time and back to bed-
--- NOTE | 2019-07-29 05:53 | NUR ---
Has been resting now for about 1-2 hours- NPO for CV this morning
[2019-07-29 06:12] LABS: BASO # 0.1 (0.0-0.2); BASO % 0.8 % (0.0-2.0); EOS # 0.2 (0.0-0.7); EOS % 2.5 % (0-4.0); GRAN # 4.7 (1.4-6.5); GRAN % 71.8 % (42.2-75.2); HEMOGLOBIN 11.8 g/dl (13.5-18.0); LYMPH % 15.1 % (20.0-51.0); MEAN CELL VOLUME 93 fl (80.0-100.0); MEAN CORPUSCULAR HEMOGLOBIN 30 pg (27.0-31.0); MEAN CORPUSCULAR HGB CONC 33 g/dl (33.0-37.0); MEAN PLATELET VOLUME 10.6 fl (7.4-10.4); MONO # 0.6 (0.1-0.6); MONO % 9.5 % (1.7-9.3); PLATELET COUNT 230 K/mm3 (130-400); RED BLOOD COUNT 3.89 M/mm3 (4.20-5.60); REDCELL DISTRIBUTION WIDTH-CV 18.8 % (11.5-14.5)
[2019-07-29 06:14] LABS: HEMATOCRIT 36.1 % (42.0-52.0)
[2019-07-29 06:34] LABS: CALCIUM 9.2 mg/dL (8.4-10.2); CREATININE, serum 1.28 (0.66-1.25); POTASSIUM 3.8 mmol/L (3.4-5.0)
--- NOTE | 2019-07-29 07:00 | NUR ---
Report received from NICHOLAS Ash. PT in bed resting, awakens upon entry, denies needs, will cntinue to monitor.
--- NOTE | 2019-07-29 09:04 | NUR ---
Assessment charted. Pt resting in bed, took some of am meds that are needed before cardioversion. Pt agreeable. Denies pain. Falling asleep between disturbances. Taken down to pie bakery laborer with pie bakery laborer team. Will await return, and ocntinue to monitor.
--- NOTE | 2019-07-29 10:19 | NUR ---
Met with again after cardioversion. Pt is still very drowsy. The reports that the cardioversion went well and that they will be adjusting Anthony's medication to help with the afib. Again they feel very supported at [facility] in their independent living apartment with the support systems they have in place. While they recognize that his medical condition is significant, they are still feeling that working for recovery is very much within their goals of care.
--- NOTE | 2019-07-29 10:23 | NUR ---
Pt returned from laboratory immunologist at this time. REsting in bed, feeling sleepy and anxious, will let rest and cntinue to monitor.
--- NOTE | 2019-07-29 11:58 | NUR ---
Research And Evaluation Analyst contacted Iris at [facility] and faxed updates. SW to continue to follow.
--- NOTE | 2019-07-29 18:07 | NUR ---
Pt resting in bed, has done well today, denies pain or other needs, has been in and out all day. Will give bedside shift report to nightshift nurse who will resume care.
--- NOTE | 2019-07-29 21:30 | NUR ---
Initial shift assessment done- denies pain- states feeling pretty good tonight, VSS, B/P borderline to give Lasix tonight according to parameters- will rechesk pressure again in a couple hours before giving. Tele on- SR,,
[2019-07-30 05:59] VITALS: BP 128/79; PULSE 42; TEMP 97.6
--- NOTE | 2019-07-30 06:02 | NUR ---
Quiet night- denies pain, becka SOB, no requests at this time. Has been up to the bathroom to void 3-4 times during the night, up with walker and assist
[2019-07-30 06:47] LABS: BASO # 0.1 (0.0-0.2); EOS # 0.2 (0.0-0.7); EOS % 2.9 % (0-4.0); GRAN # 4.5 (1.4-6.5); GRAN % 70.9 % (42.2-75.2); HEMOGLOBIN 11.8 g/dl (13.5-18.0); LYMPH # 0.9 (1.2-3.4); LYMPH % 14.5 % (20.0-51.0); MEAN CELL VOLUME 94 fl (80.0-100.0); MEAN CORPUSCULAR HEMOGLOBIN 31 pg (27.0-31.0); MEAN CORPUSCULAR HGB CONC 33 g/dl (33.0-37.0); MEAN PLATELET VOLUME 10.7 fl (7.4-10.4); MONO # 0.7 (0.1-0.6); MONO % 10.4 % (1.7-9.3); PLATELET COUNT 212 K/mm3 (130-400); RED BLOOD COUNT 3.82 M/mm3 (4.20-5.60); REDCELL DISTRIBUTION WIDTH-CV 19.1 % (11.5-14.5)
[2019-07-30 07:08] LABS: CALCIUM 9.1 mg/dL (8.4-10.2); CREATININE, serum 1.12 (0.66-1.25); POTASSIUM 3.6 mmol/L (3.4-5.0)
[2019-07-30 07:21] LABS: HEMATOCRIT 35.7 % (42.0-52.0)
[2019-07-30 07:48] VITALS: BP 127/45; PULSE 75; TEMP 97.5
[2019-07-30 08:07] VITALS: BP 119/74; PULSE 75
[2019-07-30] MEDS ORDERED: PRINIVIL2.5 MG PO (10:55)
--- NOTE | 2019-07-30 10:55 | NUR ---
Patient is A/O. patient denies any pain. Patient was help from the bed to the chair by physical therapist. is at the bedside visiting.
[2019-07-30] MEDS ORDERED: CORDARONE200 MG/TAB PO (10:57)
[2019-07-30 12:01] VITALS: BP 88/56; PULSE 75; TEMP 97.4
[2019-07-30 12:02] VITALS: BP 119/74; PULSE 75; TEMP 97.5
--- NOTE | 2019-07-30 14:45 | NUR ---
Patient is discharging to [facility].IV removed. Patient was Alert and Oriented at time of discharge. i called facility, report was giving to
--- NOTE | 2019-07-30 15:39 | NUR ---
Customer Experience Professional attended clinical rounds and patient to discharge to [facility] today. RAMY contacted Iris at [facility] and faxed updates. RAMY spoke with Iris again and set up transportation for 1400. RAMY provided transport time to RNShana and patient. RAMY faxed discharge orders to Iris. No additional needs at this time.
== END 2019-07-30 13:30 | disposition home or self-care (01) | DRG 291 ==
LOC: COL.ER 14:01 → MEDICAL 15:27 → COL.ER 15:27 → MEDICAL 15:27
PROVIDERS: Family Medicine; Nurse Practitioner Family; Physician Assistant; ADMIT Internal Medicine
PROC: 5A2204Z Restoration of Cardiac Rhythm, Single (ICD-10-PCS; principal; 2019-07-27)
DX: I11.0 Hypertensive heart disease with heart failure (principal); J96.01 Acute respiratory failure with hypoxia; N17.9 Acute kidney failure, unspecified; I50.23 Acute on chronic systolic (congestive) heart failure; I08.0 Rheumatic disorders of both mitral and aortic valves; I95.9 Hypotension, unspecified; G47.33 Obstructive sleep apnea (adult) (pediatric); M19.90 Unspecified osteoarthritis, unspecified site; E03.9 Hypothyroidism, unspecified; G20 Parkinson's disease; Z66 Do not resuscitate; N40.0 Benign prostatic hyperplasia without lower urinary tract symptoms; Z51.5 Encounter for palliative care; I48.91 Unspecified atrial fibrillation; I49.5 Sick sinus syndrome; E78.5 Hyperlipidemia, unspecified; I27.20 Pulmonary hypertension, unspecified; R79.89 Other specified abnormal findings of blood chemistry
CPT/HCPCS: 99231-AI; 99239; G0378; J1940; J2704

== ENCOUNTER 2019-07-31 10:17 | Emergency (ER) | payer MEDICARE, BC ==
[~2019-07-31] VITALS: Ht 175.3 cm; Wt 70.9 kg
[~2019-07-31 10:17] MED LIST changes: +COZAAR 50MG50 MG/TAB PO; +DOXYCYCLINE 10100 MG PO; +PACERONE400 MG PO; +PRINIVIL2.5 MG PO; +REQUIP2 MG PO; +SYMMETREL100 MG PO
[2019-07-31 10:28] VITALS: TEMP 97
[2019-07-31 11:43] LABS: ALBUMIN 3.8 gm/dL (3.5-5.0); BILIRUBIN,TOTAL 0.7 mg/dL (0.0-1.0); CALCIUM 9.1 mg/dL (8.4-10.2); CREATININE, serum 1.04 (0.66-1.25); POTASSIUM 3.9 mmol/L (3.4-5.0); TOTAL PROTEIN 6.7 gm/dL (6.4-8.2)
[2019-07-31 11:47] LABS: BASO # 0.1 (0.0-0.2); BASO % 0.8 % (0.0-2.0); EOS # 0.2 (0.0-0.7); EOS % 3.2 % (0-4.0); GRAN # 4.6 (1.4-6.5); GRAN % 72.9 % (42.2-75.2); HEMATOCRIT 37.5 % (42.0-52.0); HEMOGLOBIN 12.2 g/dl (13.5-18.0); LYMPH # 0.8 (1.2-3.4); LYMPH % 12.5 % (20.0-51.0); MEAN CELL VOLUME 95 fl (80.0-100.0); MEAN CORPUSCULAR HEMOGLOBIN 31 pg (27.0-31.0); MEAN CORPUSCULAR HGB CONC 33 g/dl (33.0-37.0); MEAN PLATELET VOLUME 10.8 fl (7.4-10.4); MONO # 0.7 (0.1-0.6); MONO % 10.4 % (1.7-9.3); PLATELET COUNT 234 K/mm3 (130-400); RED BLOOD COUNT 3.97 M/mm3 (4.20-5.60); REDCELL DISTRIBUTION WIDTH-CV 19.2 % (11.5-14.5)
[2019-07-31 13:18] VITALS: BP 120/80; PULSE 75
== END 2019-07-31 13:18 | disposition home or self-care (01) ==
LOC: COL.ER 10:17
PROVIDERS: Emergency Medicine
DX: S09.90XA Unspecified injury of head, initial encounter (principal); S40.012A Contusion of left shoulder, initial encounter; I50.9 Heart failure, unspecified; R26.89 Other abnormalities of gait and mobility; Z79.01 Long term (current) use of anticoagulants; W19.XXXA Unspecified fall, initial encounter; Y92.129 Unspecified place in nursing home as the place of occurrence of the external cause